=== PATIENT | female | born 2000 | race Two or more races ===

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

== ENCOUNTER 2022-04-07 23:50 | Emergency (ER) | payer OTHER, SELFPAY ==
[~2022-04-07] VITALS: Ht 165.1 cm; Wt 85.5 kg
[2022-04-08] MEDS ORDERED: ANEXSIA, NORCO 7.5MG/325MG TABLET(HYDROCODONE/APAP) PO ONE (01:15)
[2022-04-08] MEDS ORDERED: NORCO 5/325MG TABLET (HOME DOSE PACK) PO ONE (02:30)
[2022-04-08 02:38] VITALS: BP 126/79
== END 2022-04-08 02:47 | disposition home or self-care (01) ==
LOC: EDBD 23:50 → M ED 23:50
DX: M24.231 Disorder of ligament, right wrist (principal); Y04.0XXA Assault by unarmed brawl or fight, initial encounter; Y92.410 Unspecified street and highway as the place of occurrence of the external cause

== ENCOUNTER 2022-09-12 20:22 | Emergency (ER) | payer OTHER ==
[~2022-09-12] VITALS: Ht 170.2 cm; Wt 86.4 kg
[2022-09-12 20:31] VITALS: TEMP 97.6
[2022-09-12] MEDS ORDERED: ACETAMINOPHEN 325 MG TAB PO ONE (20:45)
[2022-09-12 22:00] VITALS: BP 107/65
[2022-09-12 22:52] VITALS: O2SAT 86
== END 2022-09-12 23:13 | disposition home or self-care (01) ==
LOC: M ED 20:22
DX: R51.9 Headache, unspecified (principal); F17.200 Nicotine dependence, unspecified, uncomplicated

== ENCOUNTER 2022-12-30 08:40 | Emergency (ER) | payer OTHER ==
[~2022-12-30] VITALS: Ht 165.1 cm; Wt 89.2 kg
[2022-12-30 08:41] VITALS: BP 131/77; TEMP 96.8
[2022-12-30 09:51] LABS: HCG, SERUM QUALITATIVE NEGATIVE (NEGATIVE)
[2022-12-30 10:08] VITALS: O2SAT 98
== END 2022-12-30 10:09 | disposition home or self-care (01) ==
LOC: M ED 08:40
DX: O21.9 Vomiting of pregnancy, unspecified (principal)

== ENCOUNTER → 2023-04-12 | Outpatient (REF) | payer OTHER ==
[2023-04-12 12:37] LABS: BASO # 0.1 10^3/uL (0.0-0.2); BASO % 0.6 % (0.0-1.0); EOS # 0.5 10^3/uL (0.0-0.5); EOS % 5.6 % (0.0-3.0); HEMATOCRIT 38.7 % (36.0-47.0); HEMOGLOBIN 12.6 g/dl (12.0-15.5); LYMPH # 3.5 10^3/uL (1.5-5.0); LYMPH % 39.6 % (24.0-44.0); MEAN CORPUSCULAR HEMOGLOBIN 27.2 pg (27.0-33.0); MEAN CORPUSCULAR HGB CONC 32.6 g/dl (32.0-36.5); MEAN CORPUSCULAR VOLUME 83.4 fl (80.0-96.0); MONO # 0.6 10^3/uL (0.0-0.8); MONO % 6.4 % (2.0-8.0); NEUTROPHILS # 4.2 10^3/uL (1.5-8.5); NEUTROPHILS % 47.6 % (36.0-66.0); PLATELET COUNT, AUTOMATED 337 10^3/uL (150-450); RED BLOOD COUNT 4.64 10^6/uL (4.00-5.40); WHITE BLOOD COUNT 8.9 10^3/uL (4.0-10.0)
[2023-04-12 12:52] LABS: HEMOGLOBIN A1c 5.6 % (4.0-6.0)
[2023-04-12 13:09] LABS: ALBUMIN 3.5 G/DL (3.2-5.2); ALKALINE PHOSPHATASE 72 U/L (46-116); ALT/SGPT 15 U/L (7.0-40); AST/SGOT 17 U/L (<34); BILIRUBIN,TOTAL 0.4 MG/DL (0.3-1.2); BLOOD UREA NITROGEN 9 MG/DL (9-23); CARBON DIOXIDE LEVEL 25 MMOL/L (20-31); CHLORIDE LEVEL 108 MMOL/L (98-107); CHOLESTEROL LEVEL 141 MG/DL (<200); CHOLESTEROL RISK RATIO 4.19 (<5); CREATININE FOR GFR 0.83 MG/DL (0.55-1.30); GLOMERULAR FILTRATION RATE > 60.0 (>60); GLUCOSE, FASTING 102 MG/DL (60-100); HDL CHOLESTEROL 33.6 MG/DL (>40); LDL CHOLESTEROL 79.4 MG/DL (<100); NON-HDL-C 107.4 MG/DL; POTASSIUM SERUM 4.2 MMOL/L (3.5-5.1); SODIUM LEVEL 140 MMOL/L (136-145); TOTAL PROTEIN 6.5 G/DL (5.7-8.2); TRIGLYCERIDES LEVEL 140 MG/DL (<150)
[2023-04-12 13:09] LABS: Trichomonas vaginalis (AMP) NOT DETECTED (NEGATIVE)
[2023-04-12 13:13] LABS: THYROID STIMULATING HORMONE 0.985 uIU/ML (0.55-4.78)
[2023-04-12 13:14] LABS: TOTAL 25(OH) VITAMIN D 18.3 NG/ML (20.0-100.0)
[2023-04-12 13:31] LABS: GC DNA AMPLIFICATION NEGATIVE (NEGATIVE)
[2023-04-12 13:39] LABS: HIV 1&2 SCREEN NEGATIVE (NEGATIVE)
== END ==
LOC: M LAB REF 11:21
PROVIDERS: ATTEND Physician Assistant
DX: Z11.9 Encounter for screening for infectious and parasitic diseases, unspecified (principal); E66.9 Obesity, unspecified; R53.83 Other fatigue; E55.9 Vitamin D deficiency, unspecified

== ENCOUNTER 2023-05-02 12:40 | Emergency (ER) | payer MEDICAID, OTHER ==
[~2023-05-02] VITALS: Ht 165.1 cm; Wt 93.3 kg
[2023-05-02] MEDS: DERMABOND TOPICAL SKIN ADHESIVE TOP ONE (13:49)
[2023-05-02 14:04] VITALS: BP 125/83; TEMP 97.7; O2SAT 99
== END 2023-05-02 14:12 | disposition home or self-care (01) ==
LOC: M ED 12:40 → EDBD 12:40 → M ED 14:12
DX: S51.812A Laceration without foreign body of left forearm, initial encounter (principal); W25.XXXA Contact with sharp glass, initial encounter; Y92.89 Other specified places as the place of occurrence of the external cause; Y93.89 Activity, other specified; Y99.8 Other external cause status

== ENCOUNTER 2023-07-13 13:36 | Emergency (ER) | payer OTHER ==
[~2023-07-13] VITALS: Ht 165.1 cm; Wt 95.4 kg
[2023-07-13 15:05] VITALS: BP 126/77; TEMP 97.3; O2SAT 100
== END 2023-07-13 15:09 | disposition home or self-care (01) ==
LOC: M ED 13:36
DX: M79.672 Pain in left foot (principal); X58.XXXA Exposure to other specified factors, initial encounter; Y92.410 Unspecified street and highway as the place of occurrence of the external cause; Y93.01 Activity, walking, marching and hiking; Y99.9 Unspecified external cause status; F90.9 Attention-deficit hyperactivity disorder, unspecified type

== ENCOUNTER 2024-01-29 16:41 | Emergency (ER) | payer OTHER ==
[~2024-01-29] VITALS: Ht 165.1 cm; Wt 94.2 kg
[~2024-01-29 16:41] MED LIST changes: -GEOD40CA13 PO; -ZIPR40CA11 PO; +ZIPR40CA21 PO; +ZIPR40CA27 PO
[2024-01-29 16:49] VITALS: BP 139/68; TEMP 98.5; O2SAT 98
== END 2024-01-29 16:57 | disposition left against medical advice (07) ==
LOC: M ED 16:41 → EDBD 16:41 → M ED 16:57
DX: Z53.21 Procedure and treatment not carried out due to patient leaving prior to being seen by health care provider (principal)

== ENCOUNTER → 2024-02-21 | Outpatient (REF) | payer OTHER | LOC: M LAB REF 16:30 | PROVIDERS: ATTEND Physician Assistant | DX: N92.5 Other specified irregular menstruation (principal) ==

== ENCOUNTER 2024-10-10 18:27 | Emergency (ER) | payer OTHER, SELFPAY ==
[~2024-10-10] VITALS: Ht 165.1 cm; Wt 68.2 kg
[~2024-10-10 18:27] MED LIST changes: +RISP0.5T82; +SERT25TA21
[2024-10-10 19:21] LABS: BASO # 0.1 10^3/uL (0.0-0.2); BASO % 0.3 % (0.0-1.0); EOS # 0.2 10^3/uL (0.0-0.5); EOS % 0.9 % (0.0-3.0); LYMPH # 2.0 10^3/uL (1.5-5.0); LYMPH % 10.7 % (24.0-44.0); MONO # 1.4 10^3/uL (0.0-0.8); MONO % 7.3 % (2.0-8.0); NEUTROPHILS # 14.9 10^3/uL (1.5-8.5); NEUTROPHILS % 80.3 % (36.0-66.0); PLATELET COUNT, AUTOMATED 307 10^3/uL (150-450)
[2024-10-10] MEDS: ceFAZolin SOD 2 GM in DEXTROSE 5% (D5W) ADV/MINI-BAG 50 ML IV ONE (19:21)
[2024-10-10] MEDS: KETOROLAC 30 MG/ML 1 ML VIAL IV ONE (19:21)
[2024-10-10 19:43] LABS: CALCIUM LEVEL 9.2 MG/DL (8.5-10.1); CARBON DIOXIDE LEVEL 25 MMOL/L (20-31); CHLORIDE LEVEL 107 MMOL/L (98-107); CREATININE FOR GFR 0.58 MG/DL (0.55-1.30); GLOMERULAR FILTRATION RATE > 90.0 (>60); POTASSIUM SERUM 3.8 MMOL/L (3.5-5.1); SODIUM LEVEL 141 MMOL/L (136-145)
[2024-10-10 20:30] VITALS: O2SAT 98
[2024-10-10] MEDS ORDERED: CEPH500C PO (20:34)
[2024-10-10 21:04] VITALS: BP 127/85; TEMP 98.3
== END 2024-10-10 21:03 | disposition home or self-care (01) ==
LOC: EDBD 18:27 → M ED 18:27
DX: L03.115 Cellulitis of right lower limb (principal); S80.821A Blister (nonthermal), right lower leg, initial encounter; F17.200 Nicotine dependence, unspecified, uncomplicated; Z79.2 Long term (current) use of antibiotics; Z79.899 Other long term (current) drug therapy; Y92.9 Unspecified place or not applicable; Y93.9 Activity, unspecified; Y99.9 Unspecified external cause status
CPT/HCPCS: 36415; 80048; 85025; 87040; 87070; 87077; 87186; 87205; 87641; 96365; 96366; 96375; 99284; J0690; J1885

== ENCOUNTER 2024-10-12 19:54 | Emergency (ER) | payer OTHER, SELFPAY ==
[~2024-10-12] VITALS: Ht 165.1 cm; Wt 85.2 kg
[~2024-10-12 19:54] MED LIST changes: +CEPH500C PO
[2024-10-12 22:16] LABS: BASO # 0.0 10^3/uL (0.0-0.2); BASO % 0.2 % (0.0-1.0); EOS # 0.3 10^3/uL (0.0-0.5); EOS % 2.3 % (0.0-3.0); LYMPH # 3.5 10^3/uL (1.5-5.0); LYMPH % 27.7 % (24.0-44.0); MONO # 1.2 10^3/uL (0.0-0.8); MONO % 9.3 % (2.0-8.0); NEUTROPHILS # 7.7 10^3/uL (1.5-8.5); NEUTROPHILS % 60.1 % (36.0-66.0); PLATELET COUNT, AUTOMATED 294 10^3/uL (150-450)
[2024-10-12 22:35] LABS: C REACTIVE PROTEIN QUANTITATIV 3.24 MG/DL (<1.0)
[2024-10-12 22:36] LABS: CALCIUM LEVEL 8.7 MG/DL (8.5-10.1); CARBON DIOXIDE LEVEL 26 MMOL/L (20-31); CHLORIDE LEVEL 110 MMOL/L (98-107); CREATININE FOR GFR 0.57 MG/DL (0.55-1.30); GLOMERULAR FILTRATION RATE > 90.0 (>60); POTASSIUM SERUM 3.7 MMOL/L (3.5-5.1); SODIUM LEVEL 145 MMOL/L (136-145)
[2024-10-12 22:47] LABS: ERYTHROCYTE SEDIMENTATION RATE 32 mm/hr (0-20)
[2024-10-12] MEDS: ceFAZolin SODIUM 2 GM in DEXTROSE 5% (D5W) ADV/MINI-BAG 50 ML IV ONE (23:01)
[2024-10-12 23:49] VITALS: BP 114/77; TEMP 97; O2SAT 98
== END 2024-10-12 23:51 | disposition home or self-care (01) ==
LOC: M ED 19:54
DX: L03.115 Cellulitis of right lower limb (principal); S81.801A Unspecified open wound, right lower leg, initial encounter; F17.200 Nicotine dependence, unspecified, uncomplicated; Z79.2 Long term (current) use of antibiotics; Z79.899 Other long term (current) drug therapy; Y93.89 Activity, other specified; Y99.9 Unspecified external cause status
CPT/HCPCS: 80048; 83605; 84145; 85025; 85652; 86140; 96365; 99284; J0690

== ENCOUNTER 2024-11-04 21:30 | Emergency (ER) | payer SELFPAY ==
[~2024-11-04] VITALS: Ht 165.1 cm; Wt 68.2 kg
[2024-11-04 21:32] VITALS: BP 135/86; TEMP 98.2; O2SAT 94
[2024-11-05] MEDS ORDERED: ISOVUE-370 76% 100 ML VIAL As Ordered ONE (00:09)
[2024-11-05 00:11] LABS: BASO # 0.1 10^3/uL (0.0-0.2); BASO % 0.3 % (0.0-1.0); EOS # 0.3 10^3/uL (0.0-0.5); EOS % 2.1 % (0.0-3.0); LYMPH # 4.9 10^3/uL (1.5-5.0); LYMPH % 31.1 % (24.0-44.0); MONO # 1.1 10^3/uL (0.0-0.8); MONO % 7.1 % (2.0-8.0); NEUTROPHILS # 9.3 10^3/uL (1.5-8.5); NEUTROPHILS % 59.0 % (36.0-66.0); PLATELET COUNT, AUTOMATED 341 10^3/uL (150-450)
[2024-11-05] MEDS: IBUPROFEN 800 MG TAB PO ONE (00:21)
[2024-11-05 00:23] LABS: CALCIUM LEVEL 8.8 MG/DL (8.5-10.1); CARBON DIOXIDE LEVEL 25 MMOL/L (20-31); CHLORIDE LEVEL 106 MMOL/L (98-107); CREATININE FOR GFR 0.59 MG/DL (0.55-1.30); GLOMERULAR FILTRATION RATE > 90.0 (>60); POTASSIUM SERUM 3.8 MMOL/L (3.5-5.1); SODIUM LEVEL 137 MMOL/L (136-145)
[2024-11-05 00:27] LABS: HCG, SERUM QUALITATIVE NEGATIVE (NEGATIVE)
[2024-11-05] MEDS: DALBAVANCIN 1,500 MG in D5W 250 ML IV ONE (00:29)
== END 2024-11-05 04:57 | disposition home or self-care (01) ==
LOC: M ED 21:30
DX: L03.115 Cellulitis of right lower limb (principal); F39 Unspecified mood [affective] disorder; F17.200 Nicotine dependence, unspecified, uncomplicated; F19.10 Other psychoactive substance abuse, uncomplicated; Z19.2 Hormone resistant malignancy status; Z79.899 Other long term (current) drug therapy
CPT/HCPCS: 73701; 80047; 80048; 84703; 85025; 87040; 96374; 99283; J0875; Q9967